=== PATIENT | female | born 1955 | race African-American/Black ===

== ENCOUNTER 2020-01-03 11:14 | Emergency (ER) | payer BC ==
[2020-01-03 11:21] VITALS: BP 155/82; PULSE 65
[2020-01-03 11:43] VITALS: TEMP 98.6
--- NOTE | 2020-01-03 12:10 | ED ---
Fever HPI - General Chief Complaint: Fever Stated Complaint: fever, cough Time Seen by Provider: 01/03/20 11:26 Source: patient Mode of arrival: ambulatory Limitations: no limitations - History of Present Illness Initial Comments: Patient is a 64-year-old female, with history hypertension, presenting to the emergency department for cochlear testing. Patient states she called her PCPs office this morning and they recommended she come in to the ER for testing. Patient states yesterday she felt tired and did have a temperature of 100 deg yesterday evening. Patient states this morning she did take Tylenol. She is having a mild dry cough as well. She does have history of asthma. She denies having chest pain, shortness of breath, nausea, vomiting, diarrhea. She denies any abdominal pain, dysuria. She has no further complaints at this time. Upon arrival to the ER, her vital signs are stable, afebrile. - Related Data Home Medications Medication Instructions Recorded Confirmed Albuterol Inhaler [Ventolin Hfa 2 puff INHALATION RT-Q6H 01/03/20 01/03/20 Inhaler] Budesonide/Formoterol Fumarate 2 puff INHALATION RT-DAILY 01/03/20 01/03/20 [Symbicort 160-4.5 Mcg Inhaler] Diltiazem HCl [Diltiazem HCl 24Hr 120 mg PO DAILY 01/03/20 01/03/20 ER] Hydrochlorothiazide [Hydrodiuril] 25 mg PO DAILY 01/03/20 01/03/20 Losartan Potassium 50 mg PO DAILY 01/03/20 01/03/20 Metoprolol Tartrate [Lopressor] 25 mg PO DAILY 01/03/20 01/03/20 Allergies Allergy/AdvReac Type Severity Reaction Status Date / Time prednisone Allergy Unknown Verified 01/03/20 12:04 Review of Systems ROS Statement: Those systems with pertinent positive or pertinent negative responses have been documented in the HPI. ROS Other: All systems not noted in ROS Statement are negative. Past Medical History Past Medical History: Asthma, Hypertension History of Any Multi-Drug Resistant Organisms: None Reported Past Surgical History: Cholecystectomy, Hysterectomy Past Psychological History: No Psychological Hx Reported Smoking Status: Never smoker Past Alcohol Use History: None Reported Past Drug Use History: None Reported General Exam - General Exam Comments Initial Comments: GENERAL: Well-appearing, well-nourished and in no acute distress. HEAD: Atraumatic, normocephalic. EYES: Pupils equal round and reactive to light, extraocular movements intact, sclera anicteric, conjunctiva are normal. ENT: TMs normal, nares patent, oropharynx clear without exudates. Moist mucous membranes. NECK: Normal range of motion, supple without lymphadenopathy or JVD. LUNGS: Breath sounds clear to auscultation bilaterally and equal. No wheezes rales or rhonchi. HEART: Regular rate and rhythm without murmurs, rubs or gallops. ABDOMEN: Soft, nontender, normoactive bowel sounds. No guarding, no rebound. No masses appreciated. : Deferred EXTREMITIES: Normal range of motion, no pitting or edema. No clubbing or cyanosis. NEUROLOGICAL: Normal speech, normal gait. PSYCH: Normal mood, normal affect. SKIN: Warm, Dry, normal turgor, no rashes or lesions noted. Limitations: no limitations Course Vital Signs 01/03/20 01/03/20 11:16 11:42 Temperature 98.5 F 98.6 F Pulse Rate 65 Respiratory 18 Rate Blood Pressure 155/82 O2 Sat by Pulse 98 Oximetry Medical Decision Making - Medical Decision Making 64-year-old female, with history of hypertension, asthma, presenting for covert testing. PCP sent her in for testing as she had a fever last night and a mild cough. No chest pain, no shortness of breath. Her vitals are stable upon arrival. Her exam is unremarkable. She is nontoxic appearing. Chest x-ray shows no acute findings. Patient was swabbed for Covid. This is pending at this time. She is stable for discharge. She does have at home inhalers she uses as needed. She will continue to take Tylenol as needed for fever control. Increase water intake. Patient will follow-up with PCP. Return parameters were discussed with the patient she verbalized understanding. Disposition Clinical Impression: Cough, Viral illness Disposition: HOME SELF-CARE Condition: Stable Instructions (If sedation given, give patient instructions): Acute Cough (ED) Additional Instructions: Please return to the Emergency Department if symptoms worsen or any other concerns. Continue with Tylenol as needed for fever control. Follow up with PCP. Is patient prescribed a controlled substance at d/c from ED?: No Referrals: Beatrice Marcial MD [Primary Care Provider] - 1-2 days
--- NOTE | 2020-01-03 12:27 | XR ---
EXAMINATION TYPE: XR chest 1V DATE OF EXAM: 01/03/2020 COMPARISON: None INDICATION: Fever, cough TECHNIQUE: Single frontal view of the chest is obtained. FINDINGS: The heart size is normal. The pulmonary vasculature is normal. The lungs are clear. IMPRESSION: 1. No acute pulmonary process.
[2020-01-03 12:37] VITALS: RESP 18
== END 2020-01-03 12:50 | disposition home or self-care (01) ==
LOC: EC 11:14
DX: B34.9 Viral infection, unspecified (principal); I10 Essential (primary) hypertension; J45.909 Unspecified asthma, uncomplicated; Z20.828 Contact with and (suspected) exposure to other viral communicable diseases; Z88.8 Allergy status to other drugs, medicaments and biological substances; Z79.51 Long term (current) use of inhaled steroids; Z79.899 Other long term (current) drug therapy
CPT/HCPCS: 71045; 99283; U0003

== ENCOUNTER → 2020-06-15 | Outpatient (CLI) | payer BC ==
[2020-06-15 13:35] LABS: Basophils # (A) 0.1 k/uL (0-0.2); Basophils % (A) 3 %; Eosinophils % (A) 1 %; HCT 38.9 % (34.0-46.0); HGB 13.1 gm/dL (11.4-16.0); Lymphocytes # (A) 1.1 k/uL (1.0-4.8); Lymphocytes % (A) 31 %; MCH 28.3 pg (25.0-35.0); MCHC 33.5 g/dL (31.0-37.0); MCV 84.3 fL (80.0-100.0); Mean Platelet Volume 8.7; Monocytes # (A) 0.3 k/uL (0-1.0); Monocytes % (A) 7 %; Neutrophils % (A) 56 %; Platelet Count 219 k/uL (150-450); RBC 4.62 m/uL (3.80-5.40); RDW 13.8 % (11.5-15.5); WBC 3.5 k/uL (3.8-10.6)
[2020-06-15 13:48] LABS: C Reactive Protein 8.4 mg/L (<10.0)
--- NOTE | 2020-06-15 15:55 | XR ---
EXAMINATION TYPE: XR chest 2V DATE OF EXAM: 06/15/2020 COMPARISON: 01/03/2020 HISTORY: 65-year-old female, COVID positive, chest pain, cough TECHNIQUE: PA and lateral views FINDINGS: The heart is upper limits of normal in size. Aorta and pulmonary vasculature within normal limits. Jasmin ngs and pleural spaces are clear. IMPRESSION: No acute cardiopulmonary process.
[2020-06-16 00:24] LABS: Ferritin 279.5 ng/mL (10.0-291.0)
== END | disposition home or self-care (01) ==
LOC: LABWHC1 12:56
PROVIDERS: ATTEND Family Medicine
DX: R05 Cough (principal); R06.02 Shortness of breath; R07.9 Chest pain, unspecified; Z20.828 Contact with and (suspected) exposure to other viral communicable diseases
CPT/HCPCS: 36415; 71046; 82728; 83615; 84484; 85025; 85379; 86140

== ENCOUNTER → 2024-05-16 | Outpatient (CLI) | payer MEDICARE ==
--- NOTE | 2024-05-16 11:23 | US ---
EXAMINATION TYPE: US carotid duplex BILAT DATE OF EXAM: 05/16/2024 COMPARISON: NONE CLINICAL INDICATION: Female, 69 years old with history of I65.23 OCCLUSION AND STENOSIS OF BILATERAL CAROTID; order states stenosis, patient said no symptoms, no h/o stroke, patient state no other imagi ng for carotids ever done before Medically necessarily indication *REQUIRED: no medical necessary indication given TECHNIQUE: Grayscale, color Doppler and spectral Doppler evaluation of the bilateral carotid systems and vertebral arteries. Indirect Doppler criteria was utilized. FINDINGS: EXAM MEASUREMENTS: RIGHT: Peak Systolic Velocity (PSV) cm/sec ----- Right CCA: 75.7 ----- Right ICA: 91.0 ----- Right ECA: 65.7 ICA/CCA ratio: 1.2 RIGHT: End Diastole cm/sec ----- Right CCA: 20.1 ----- Right ICA: 36.0 ----- Right ECA: 17.3 LEFT: Peak Systolic Velocity (PSV) cm/sec ----- Left CCA: 79.1 ----- Left ICA: 75.6 ----- Left ECA: 51.9 ICA/CCA ratio: 1.0 LEFT: End Diastole cm/sec ----- Left CCA: 22.4 ----- Left ICA: 32.8 ----- Left ECA: 11.3 VERTEBRALS (direction of flow): Right Vertebral: Antegrade Left Vertebral: Antegrade Rhythm: Normal MACHINE SETTER AUTOMATIC NOTES: Mild homogeneous plaque with no stenosis seen IMPRESSION: No ultrasound evidence for hemodynamically significant stenosis of the bilateral visualized carotid a rterial systems. Criteria for Assigning % of Stenosis / Diameter reduction (Estimation based on the indirect measurements of the internal carotid artery velocities (ICA PSV). 1. Normal (no stenosis)=ICA PSV < 125 cm/s: ratio < 2.0: ICA EDV<40 cm/s. 2. Less than 50% stenosis=ICA PSV < 125 cm/s: ratio < 2.0: ICA EDV<40 cm/s. 3. 50 to 69% stenosis=ICA PSV of 125 to 230 cm/s: ration 2.0 ? 4.0: ICA EDV 40-100 cm/s. 4. Greater than 70% stenosis to near occlusion= ICA PSV > 230 cm/s: ratio > 4.0: ICA EDV > 100 cm/s. 5. Near occlusion= ICA PSV velocities may be low or undetectable: variable ratio and ICA EDV. 6. Total occlusion=unable to detect flow. [facility], , 05/16/2024 11:20 AM
== END | disposition home or self-care (01) ==
LOC: RADUSWWP 10:13
PROVIDERS: ATTEND Internal Medicine
DX: I65.23 Occlusion and stenosis of bilateral carotid arteries (principal)
CPT/HCPCS: 93880

== ENCOUNTER → 2025-02-06 | Outpatient (CLI) | payer MEDICARE ==
--- NOTE | 2025-02-06 08:52 | US ---
EXAMINATION TYPE: US abdomen complete DATE OF EXAM: 02/06/2025 COMPARISON: NONE CLINICAL INDICATION: Female, 69 years old with history of R10.11 RIGHT UPPER QUADRANT PAIN; Hx cholec ystectomy TECHNIQUE: Grayscale and color Doppler imaging of the abdomen was performed. FINDINGS: EXAM MEASUREMENTS: Liver Length: 19.6 cm Gallbladder Wall: Surgically absent cm CBD: 0.6 cm, color Doppler imaging was utilized to isolate the common bile duct for measurement. Spleen: 7.6 x 2.6 x 2.5 cm Right Kidney: 10.9 x 4.1 x 5.6 cm Left Kidney: 10.1 x 5.1 x 4.6 cm ELECTRIC SHIPYARD OPERATOR NOTES: Pancreas: wnl Liver: Echotexture appears within normal limits, no dilated ducts, masses or cysts. Gallbladder: Surgically absent Evidence for sonographic Haynes's sign: NA CBD: wnl Spleen: wnl Right Kidney: wnl, No hydronephrosis, calculi or masses seen Left Kidney: wnl, No hydronephrosis, calculi or masses seen Upper IVC: wnl Abd Aorta: wnl IMPRESSION: 1. Hepatomeg[facility], , 02/06/2025 8:50 AM
== END | disposition home or self-care (01) ==
LOC: RADUSWWP 07:46
PROVIDERS: ATTEND Internal Medicine
DX: R16.0 Hepatomegaly, not elsewhere classified (principal)
CPT/HCPCS: 76700